=== PATIENT | female | born 1960 | race Caucasian/White ===

== ENCOUNTER → 2025-04-05 16:05 | Outpatient (REF) | payer BC, SELFPAY | LOC: HWRAD 16:05 | PROVIDERS: ATTENDING PHYSICIAN Family Medicine | DX: M25.551 Pain in right hip (principal) | CPT/HCPCS: 73502 ==

== ENCOUNTER → 2025-08-01 07:54 | Outpatient (REF) | payer BC, SELFPAY | LOC: EMG 07:54 | PROVIDERS: ATTENDING PHYSICIAN Podiatrist Primary Podiatric Medicine; FAMILY PHYSICIAN Family Medicine | DX: G57.63 Lesion of plantar nerve, bilateral lower limbs (principal); M79.671 Pain in right foot; M79.672 Pain in left foot; G60.8 Other hereditary and idiopathic neuropathies; R20.0 Anesthesia of skin | CPT/HCPCS: 95886; 95911 ==